=== PATIENT | female | born 1990 | race Caucasian/White ===

== ENCOUNTER 2021-02-06 04:16 | Inpatient (IN) ==
[2021-02-06] MEDS ORDERED: Epidural Premix (fent/bupiv) 110 ML EP SCH (04:45)
[2021-02-06] MEDS ORDERED: EPHEDrine 50 MG/ML VIAL IVP PRN (04:45)
[2021-02-06] MEDS ORDERED: Metoclopramide 10 MG/2 ML VIAL IVP PRN (05:21)
[2021-02-06] MEDS ORDERED: *HR* FentaNYL (PF) 100 MCG/2 ML VIAL IVP PRN (05:21)
[2021-02-06] MEDS ORDERED: Naloxone 0.4 MG/ML INJ IVP PRN (05:21)
[2021-02-06] MEDS ORDERED: Lidocaine 1% 20 ML MDV INFILT PRN (05:21)
[2021-02-06] MEDS ORDERED: Famotidine 20 MG/2 ML VIAL IVP PRN (05:21)
[2021-02-06] MEDS ORDERED: Azithromycin 500 MG in 0.9 % Sodium Chloride 250 ML IVPB PRN (05:21)
[2021-02-06] MEDS ORDERED: Ondansetron 4 MG/2 ML VIAL IVP PRN (05:21)
[2021-02-06] MEDS ORDERED: Ringers Solution, Lactated 1,000 ML IVC SCH (05:30)
[2021-02-06] MEDS ORDERED: Oxytocin 20 units/ LR 1000 mL 20 UNIT/1,000 ML BAG IVC SCH (05:30)
[2021-02-06 05:49] LABS: Basophils % 0.1 %; Eosinophils # 0.1 K/mcL (0.0-0.6); Eosinophils % 0.6 %; Hematocrit 33.9 % (35.3-44.9); Hemoglobin 10.9 g/dL (11.5-15.4); Immature Granulocytes % 0.5 % (0-4); Lymphocytes # 1.5 K/mcL (0.6-4.6); Lymphocytes % 12.5 %; Mean Corpuscular HGB Conc 32.2 g/dL (31.6-35.5); Mean Corpuscular Hemoglobin 27.5 pg (28.0-33.3); Mean Corpuscular Volume 85.4 fL (83.0-100.0); Mean Platelet Volume 12.4 fL (9.4-12.4); Monocytes # 0.6 K/mcL (0.0-1.3); Monocytes % 5.3 %; Neutrophils # 9.5 K/mcL (1.6-8.9); Platelet Count 187 K/mcL (140-400); Red Blood Count 3.97 M/mcL (3.82-4.97); Red Cell Distribution Width 16.1 % (11.5-14.5); White Blood Count 11.7 K/mcL (4.3-11.1)
[2021-02-06] MEDS ORDERED: miSOPROStoL 25 MCG TABLET PO SCH (07:30)
[2021-02-06] MEDS: *HR* Nalbuphine 10 MG/ML AMPUL IV PRN ×2 (08:32→12:28)
[2021-02-06 08:38] LABS: Amphetamine Screen,Urine Negative ng/mL (Cutoff=1000); Barbiturate Screen,Urine Negative ng/mL (Cutoff=200); Benzodiazepines Screen,Urine Negative ng/mL (Cutoff=200); Cannabinoid Screen,Urine Negative ng/mL (Cutoff = 50); Cocaine Screen,Urine Negative ng/mL (Cutoff= 300); Opiate Screen,Urine Negative ng/mL (Cutoff=300); Phencyclidine Screen,Urine Negative ng/mL (Cutoff=25)
[2021-02-06] MEDS ORDERED: *HR* FentaNYL (PF) 100 MCG/2 ML VIAL ONE ×3 (14:02→21:32)
[2021-02-06] MEDS ORDERED: Ropivacaine/PF 0.2% 20 ML VIAL ONE (14:02)
[2021-02-06] MEDS ORDERED: Ropivacaine/PF 0.2% 20 ML VIAL EP ONE (15:00)
[2021-02-06] MEDS ORDERED: *HR* FentaNYL (PF) 100 MCG/2 ML VIAL EP ONE (15:00)
[2021-02-06] MEDS ORDERED: *HR* Ropivacaine/PF 0.5% 20 ML VIAL ONE (17:27)
[2021-02-07] MEDS ORDERED: Ropivacaine/PF 0.2% 20 ML VIAL ONE (08:26)
[2021-02-07] MEDS ORDERED: *HR* FentaNYL (PF) 100 MCG/2 ML VIAL ONE ×2 (08:26→10:41)
[2021-02-07] MEDS ORDERED: Lidocaine/EPI 1:200k 2% PF 20 ML VIAL ONE (08:26)
[2021-02-07] MEDS ORDERED: Oxytocin 20 units/ LR 1000 mL 20 UNIT/1,000 ML BAG IVC SCH (15:55)
[2021-02-07] MEDS ORDERED: Oxytocin 20 units/ LR 1000 mL 20 UNIT/1,000 ML BAG IVC ONE (15:55)
[2021-02-07] MEDS ORDERED: Lanolin 7 G OINT...G. TP PRN (15:55)
[2021-02-07] MEDS ORDERED: Acetaminophen 325 MG TABLET PO PRN (15:55)
[2021-02-07] MEDS ORDERED: Measles/Mumps/Rubella Vacc 0.5 ML VIAL SQ PRN (15:55)
[2021-02-07] MEDS ORDERED: Rho Immune Globulin 1,500 UNIT SYRINGE IM PRN (15:55)
[2021-02-07] MEDS ORDERED: Benzocaine/Menthol 56 GM AEROSOL SPRAY TP PRN (15:55)
[2021-02-07] MEDS: Ibuprofen 600 MG TABLET PO PRN (21:01)
[2021-02-08] MEDS: Ibuprofen 600 MG TABLET PO PRN (05:56)
[2021-02-08 07:56] VITALS: BP 114/69; TEMP 97.8; O2SAT 97
[2021-02-08] MEDS ORDERED: Prenatal Vit/FA 1 EACH TABLET PO SCH (09:00)
[2021-02-08 09:26] VITALS: PULSE 70
[2021-02-08 13:32] LABS: Basophils % 0.2 %; Eosinophils # 0.2 K/mcL (0.0-0.6); Eosinophils % 1.3 %; Hematocrit 32.8 % (35.3-44.9); Hemoglobin 10.4 g/dL (11.5-15.4); Immature Granulocytes % 0.6 % (0-4); Lymphocytes # 1.5 K/mcL (0.6-4.6); Mean Corpuscular HGB Conc 31.7 g/dL (31.6-35.5); Mean Corpuscular Hemoglobin 27.2 pg (28.0-33.3); Mean Corpuscular Volume 85.6 fL (83.0-100.0); Mean Platelet Volume 12.3 fL (9.4-12.4); Monocytes # 0.9 K/mcL (0.0-1.3); Monocytes % 7.7 %; Neutrophils # 9.5 K/mcL (1.6-8.9); Platelet Count 183 K/mcL (140-400); Red Blood Count 3.83 M/mcL (3.82-4.97); Red Cell Distribution Width 16.2 % (11.5-14.5); Segmented Neutrophils % 78.2 %; White Blood Count 12.1 K/mcL (4.3-11.1)
== END 2021-02-08 15:59 | disposition home or self-care (01) | DRG 807 ==
LOC: 1NENULAB 04:16 → 1NENUOBS 02-07 16:36
PROVIDERS: ADMIT Student in an Organized Health Care Education/Training Program; ATTEND Student in an Organized Health Care Education/Training Program